=== PATIENT | male | born 1975 | race African-American/Black ===

== ENCOUNTER 2016-06-22 14:39 | Emergency (ER) | payer OTHER ==
[2016-06-22 14:46] VITALS: BP 127/74; PULSE 86; TEMP 97.6; BMI 30.2
[2016-06-22] MEDS ORDERED: ALBUTEROL SO4 2.5/IPRATROPIUM 0.5 INH SOL 3 ML VIAL.NEB. NEB ONE ×4 (15:20→16:43)
[2016-06-22] MEDS ORDERED: predniSONE 20 MG TABLET (UD) PO ONE (15:21)
[2016-06-22] MEDS ORDERED: predniSONE 20 MG TABLET (UD) ONE (15:21)
--- NOTE | 2016-06-22 15:25 | PDOC ---
History of Present Illness - General Chief Complaint: Cold Symptoms Stated Complaint: FLU SYMP Time Seen by Provider: 06/22/16 14:58 History Source: Patient Exam Limitations: No Limitations - History of Present Illness Initial Comments: 06/22/16 15:28 c/o cough , wheezing and SOB Timing/Duration: reports: constant, getting worse Severity: reports: mild, moderate Associated Symptoms: reports: chest pain/soreness, fever/chills, nasal congestion, nasal drainage, shortness of breath, wheezing Past History - Travel Traveled outside of the country in the last 30 days: No Close contact w/someone who was outside of country & ill: No - Past Medical History Allergies/Adverse Reactions: Allergies Allergy/AdvReac Type Severity Reaction Status Date / Time chloriquine Allergy Uncoded 06/22/16 14:42 Home Medications: Ambulatory Orders Prednisone [Deltasone -] 20 mg PO BID #8 tablet 06/22/16 Other medical history: NONE - Psycho/Social/Smoking Cessation Hx Anxiety: No Suicidal Ideation: No Smoking History: Never smoked Have you smoked in the past 12 months: No Information on smoking cessation initiated: No Hx Alcohol Use: No Drug/Substance Use Hx: No Substance Use Type: None Review of Systems - Review of Systems Able to Perform ROS?: Yes Is the patient limited Kinyarwanda proficient: Yes Constitutional: Yes: Symptoms Reported, See HPI, Malaise. No: Fever HEENTM: Yes: Symptoms Reported, See HPI, Nose Congestion, Throat Pain Respiratory: Yes: Symptoms reported, See HPI, Cough, Shortness of Breath, Wheezing : No: Symptoms Reported Musculoskeletal: Yes: Symptoms Reported, See HPI All Other Systems: Reviewed and Negative *Physical Exam - Vital Signs Last Vital Signs Temp Pulse Resp BP Pulse Ox 97.6 F 86 22 127/74 96 06/22/16 14:43 06/22/16 14:43 06/22/16 14:43 06/22/16 14:43 06/22/16 14:43 - Physical Exam General Appearance: Yes: Nourished, Appropriately Dressed. No: Apparent Distress HEENT: positive: EOMI, YANA, TMs Normal, Pharynx Normal, Rhinorrhea Neck: positive: Supple, Lymphadenopathy (R), Lymphadenopathy (L). negative: Tender Respiratory/Chest: positive: Labored Respiration, Decreased Breath Sounds (poor breath sounds bilaterally with end expiratory wheeze), Wheezing. negative: Normal Breath Sounds, Respiratory Distress, Accessory Muscle Use, Rhonchi Cardiovascular: positive: Regular Rate Gastrointestinal/Abdominal: positive: Soft. 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 Will treat with prednisone and DuoNeb's and reevaluate Medical Decision Making - Medical Decision Making 06/22/16 17:40 Patient much improved after third treatment, redness around 60 mg and one hour. Is able to walk without dyspnea, breath sounds are much clear with good aeration bilaterally. No wheezing heard. Will discharge with prednisone, and instructions for antihistamine use. Will follow-up with PMD *DC/Admit/Observation/Transfer Diagnosis at time of Disposition: Allergic rhinitis Qualifiers: Allergic rhinitis trigger: unspecified Allergic rhinitis seasonality: unspecified seasonality Qualified Code(s): J30.9 - Allergic rhinitis, unspecified - Discharge Dispostion Disposition: HOME Condition at time of disposition: Stable Admit: No - Referrals Referrals: Eric Tinajero MD [Primary Care Provider] - - Patient Instructions Printed Discharge Instructions: DI for Allergic Rhinitis Additional Instructions: Rest, drink lots of fluids: Teas, water, soups, Pedialyte Saltwater gargles Steamy showers/seem to face break up mucus Avoid contact with others until fevers and cough resolved Lots of handwashing and good hygiene Continue [id number] medications for symptomatic relief Tylenol or Motrin for fever and pain Antihistamines daily until ALLERGY season is gone- Zyrtec/ Alka/ Claritin= May buy generic meds as they are thje same Prednisone 40 mg daily for next 4 days Followup with private physician in one to 2 days as needed Return to emergency department for worsened symptoms, fevers, dehydration
== END 2016-06-22 17:52 | disposition home or self-care (01) ==
LOC: JERFT 14:39
PROC: 3E0F7GC Introduction of Other Therapeutic Substance into Respiratory Tract, Via Natural or Artificial Opening (ICD-10-PCS; principal; 2016-06-22)
PROC: 3E0F7GC Introduction of Other Therapeutic Substance into Respiratory Tract, Via Natural or Artificial Opening (ICD-10-PCS; 2016-06-22)
DX: J45.901 Unspecified asthma with (acute) exacerbation (principal); J30.9 Allergic rhinitis, unspecified
CPT/HCPCS: 94640; 99281-25

== ENCOUNTER 2018-02-27 11:35 | Emergency (ER) | payer OTHER ==
[2018-02-27 11:41] VITALS: BP 153/80; PULSE 75; TEMP 97.8; BMI 30.4
[2018-02-27] MEDS ORDERED: KETOROLAC TROMETHAMINE 30 MG/1 ML VIAL IM ONE (12:13)
[2018-02-27] MEDS ORDERED: KETOROLAC TROMETHAMINE 30 MG/1 ML VIAL ONE (12:15)
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
== END 2018-02-27 12:21 | disposition home or self-care (01) ==
LOC: JERFT 11:35
PROC: 3E0233Z Introduction of Anti-inflammatory into Muscle, Percutaneous Approach (ICD-10-PCS; principal; 2018-02-27)
DX: M54.89 Other dorsalgia (principal); V49.49XA Driver injured in collision with other motor vehicles in traffic accident, initial encounter; Y92.488 Other paved roadways as the place of occurrence of the external cause; Y93.89 Activity, other specified; Y99.8 Other external cause status
CPT/HCPCS: 99281-25

== ENCOUNTER 2018-04-08 10:55 | Emergency (ER) | payer OTHER ==
[2018-04-08 11:21] VITALS: BP 109/53; PULSE 88; TEMP 98.9; BMI 30.2
--- NOTE | 2018-04-08 12:07 | PDOC ---
History of Present Illness - General Chief Complaint: Cold Symptoms Stated Complaint: COLD SYMPTOMS Time Seen by Provider: 04/08/18 11:48 History Source: Patient Exam Limitations: No Limitations - History of Present Illness Initial Comments: 04/08/18 12:02 42 year old male with no significant medical or surgical history present with his family all complaining of flu-like symptoms, coughing, stuffy nose, malaise and bodyaches. States symptoms x 2 days. Denies shortness of breath 04/09/18 13:49 Timing/Duration: reports: yesterday Severity: reports: mild Possible Cause: Yes: other (sick contacts) Associated Symptoms: denies: cough, dizziness Aspirin Received prior to arrival: Yes: no aspirin today ASA Contraindications(Core Measure): No: Allergy Beta Angelica Contraindications(Core Measure): Yes: Not Prescribed Beta Angelica Given by EMS(Core Measure): No Past History - Travel Traveled outside of the country in the last 30 days: No Close contact w/someone who was outside of country & ill: No - Past Medical History Allergies/Adverse Reactions: Allergies Allergy/AdvReac Type Severity Reaction Status Date / Time chloriquine Allergy Uncoded 04/08/18 11:18 Home Medications: Ambulatory Orders Methocarbamol [Robaxin -] 1,500 mg PO Q8H #30 tablet 02/27/18 Oseltamivir Phosphate [Tamiflu -] 75 mg PO DAILY #10 capsule 04/08/18 COPD: No - Immunization History Immunization Up to Date: Yes - Suicide/Smoking/Psychosocial Hx Smoking History: Never smoked Have you smoked in the past 12 months: No Information on smoking cessation initiated: No Hx Alcohol Use: No Drug/Substance Use Hx: No Substance Use Type: None Respiratory Specific PMHX - Complaint Specific PMHX Angina: No Bronchitis: No Pneumonia: No Pulmonary Embolus: No TB (Tuberculosis): No Review of Systems - Review of Systems Able to Perform ROS?: Yes Is the patient limited Bhutanese proficient: No Constitutional: Yes: Fever, Malaise. No: Chills HEENTM: Yes: Nose Congestion Respiratory: Yes: Cough. No: Orthopnea, Shortness of Breath, Stridor Cardiac (ROS): No: Chest Pain, Lightheadedness, Palpitations ABD/GI: No: Nausea, Poor Appetite, Vomiting, Indigestion Musculoskeletal: No: Back Pain, Joint Pain, Muscle Pain, Muscle Weakness Integumentary: No: Bruising, Erythema Neurological: No: Headache, Numbness, Paresthesia, Weakness Hematologic/Lymphatic: No: Anemia *Physical Exam - Vital Signs Last Vital Signs Temp Pulse Resp BP Pulse Ox 98.9 F 88 17 109/53 L 98 04/08/18 11:19 04/08/18 11:19 04/08/18 11:19 04/08/18 11:19 04/08/18 11:19 - Physical Exam General Appearance: Yes: Nourished, Appropriately Dressed. No: Apparent Distress HEENT: positive: TMs Normal, Pharynx Normal, Pharyngeal Erythema, Nasal Congestion, Rhinorrhea Neck: positive: Supple. 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, Fully Oriented Moderate Sedation - Procedure Monitoring Vital Signs: Procedure Monitoring Vital Signs Temperature 98.9 F 04/08/18 11:19 Pulse Rate 88 04/08/18 11:19 Respiratory Rate 17 04/08/18 11:19 Blood Pressure 109/53 L 04/08/18 11:19 O2 Sat by Pulse Oximetry (%) 98 04/08/18 11:19 Medical Decision Making - Medical Decision Making 04/08/18 12:06 42 year old male with no significant medical or surgical history presents with his family with flu-like symptoms influenza swab 04/08/18 12:31 +influenza A rx: tamiflu *DC/Admit/Observation/Transfer Diagnosis at time of Disposition: Influenza A - Discharge Dispostion Disposition: HOME Condition at time of disposition: Good Decision to Admit order: No - Prescriptions Prescriptions: Oseltamivir Phosphate [Tamiflu -] 75 mg PO DAILY #10 capsule - Referrals Referrals: Eric Tinajero MD [Primary Care Provider] - - Patient Instructions Printed Discharge Instructions: How to Avoid a Cold or Flu Additional Instructions: Please drink plenty fluids May take ibuprofen for fever or pain Call primary physician for follow up appointment - Post Discharge Activity Forms/Work/School Notes: Back to Work
== END 2018-04-08 13:37 | disposition home or self-care (01) ==
LOC: JERFT 10:55
DX: J09.X2 Influenza due to identified novel influenza A virus with other respiratory manifestations (principal)
CPT/HCPCS: 87804; 99281-25

== ENCOUNTER 2019-10-27 18:21 | Emergency (ER) | payer OTHER ==
[2019-10-27 18:27] VITALS: BMI 32.5
[2019-10-27] MEDS ORDERED: KETOROLAC TROMETHAMINE 30 MG/1 ML VIAL IM ONE (20:14)
--- NOTE | 2019-10-27 20:26 | PDOC ---
History of Present Illness - General Chief Complaint: Pain, Acute Stated Complaint: LOWER RS BACK PAIN- UNSPECIFIED Time Seen by Provider: 10/27/19 19:35 History Source: Patient Exam Limitations: No Limitations - History of Present Illness Initial Comments: 10/27/19 20:19 HISTORY OF PRESENT ILLNESS: 44-year-old male denies medical history presents emergency department for evaluation of right mid back pain for the past 2 weeks. Patient was seen and evaluated by his primary doctor who gave the patient a prescription for Naprosyn which he reports his head minimal relief of his symptoms. Patient reports the pain is waxing and waning is unable to identify any aggravating or alleviating factors. Patient reports his pain feels like a "sharp itch." He denies any dysuria, hematuria, rectal bleeding, penile discharge, abdominal pain, nausea or vomiting. No recent travel or sick contacts. PAST MEDICAL HISTORY: Denies past medical history SURGICAL HISTORY: Denies ALLERGIES: Chloroquine REVIEW OF SYSTEMS General/Constitutional: Denies fever or chills. Denies weakness, weight change. HEENT: Denies change in vision. Denies ear pain or discharge. Denies sore throat. Cardiovascular: Denies chest pain or shortness of breath. Respiratory: Denies cough, wheezing, or hemoptysis. Gastrointestinal: Denies nausea, vomiting, diarrhea or constipation. Denies rectal bleeding. Genitourinary: Denies dysuria, frequency, or change in urination. Musculoskeletal: See HPI Skin and breasts: Denies rash or easy bruising. Neurologic: Denies headache, vertigo, loss of consciousness, or loss of sensation. Psychiatric: Denies depression or anxiety. Endocrine: Denies increased thirst. Denies abnormal weight change. Hematologic/Lymphatic: Denies anemia, easy bleeding, or history of blood clots. Allergic/Immunologic: Denies hives or skin allergy. Denies latex allergy. PHYSICAL EXAM General Appearance: Well-appearing, appropriately dressed. No apparent distress, no intoxication. Respiratory/Chest: Lungs CTAB. No shortness of breath, chest tenderness, respiratory distress, accessory muscle use. No crackles, rales, rhonchi, stridor, wheezing, dullness Cardiovascular: RRR. S1, S2. No JVD, murmur, bradycardia, tachycardia. Gastrointestinal/Abdominal: Normal bowel sounds. Abdomen soft, non-distended. No tenderness or rebound tenderness. No organomegaly, pulsatile mass, guarding, hernia, hepatomegaly, splenomegaly. Musculoskeletal/Extremities: Normal inspection. FROM of all extremities, normal capillary refill. Pelvis Stable. No CVA tenderness. No tenderness to ext remities, pedal edema, swelling, erythema or deformity. Past History - Medical History Allergies/Adverse Reactions: Allergies Allergy/AdvReac Type Severity Reaction Status Date / Time chloroquine Allergy Verified 10/27/19 20:37 Home Medications: Ambulatory Orders Methocarbamol [Robaxin -] 1,500 mg PO Q8H #30 tablet 02/27/18 Oseltamivir Phosphate [Tamiflu -] 75 mg PO DAILY #10 capsule 04/08/18 COPD: No - Immunization History Immunization Up to Date: Yes - Psycho-Social/Smoking History Smoking History: Never smoked Have you smoked in the past 12 months: No *Physical Exam - Vital Signs Last Vital Signs Temp Pulse Resp BP Pulse Ox 65 18 145/80 100 10/27/19 18:23 10/27/19 18:23 10/27/19 18:23 10/27/19 18:23 ED Treatment Course - RADIOLOGY Radiology Studies Ordered: Category Date Time Status RIBS RIGHT SIDE [RAD] Stat Radiology 10/27/19 18:50 Taken Medical Decision Making - Medical Decision Making 10/27/19 20:26 A/P: 44-year-old male with right mid back pain for 2 weeks Lungs clear to auscultation bilaterally No deformity, crepitus, subcutaneous emphysema, flail chest present upon palpation No CVA tenderness elicited Pain is likely musculoskeletal but as patient has been receiving treatment for musculoskeletal pain over the past 2 weeks I will get a right rib series as well as urine studies Rib x-rays read by me: No acute pathology present. Toradol 30 mg IM now Reassess 10/27/19 21:28 Laboratory Tests 10/27/19 20:55 Urine Color Yellow Urine Appearance Clear Urine pH 5.5 Ur Specific [place] 1.027 Urine Protein Negative Urine Glucose (UA) Negative Urine Ketones Negative Urine Blood Negative Urine Nitrite Negative Urine Bilirubin Negative Urine Urobilinogen 1.0 Ur Leukocyte Esterase Negative Given negative rib films and UA not suggestive of infection likely is musculoskeletal in nature. Patient instructed to continue Naprosyn and to add Tylenol for pain relief. Patient instructed to use OTC Lidoderm patches. I discussed the physical exam findings, ancillary test results and final diagnoses with the patient. I answered all of the patient's questions. The patient was satisfied with the care received and felt comfortable with the discharge plan and treatment plan. The patient will call their primary care physician within 24 hours to arrange follow-up and will return to the Emergency Department with any new, persistent or worsening symptoms. Portions of this note have been documented using voice recognition software. As a result, errors may occur in the display card writer process. Effort has been made to correct all grammatical and display card writer error, but some may have been missed which may produce sporadic inaccurate display card writer or nonsensical phrases. Discharge - Discharge Information Problems reviewed: Yes Clinical Impression/Diagnosis: Musculoskeletal back pain Condition: Stable Disposition: HOME - Admission No - Follow up/Referral Referrals: Eric Tinajero MD [Primary Care Provider] - - Patient Discharge Instructions Additional Instructions: Take Tylenol and naproxen as needed for pain. Follow manufacturers instructions for appropriate dosage. Apply [id number] lidocaine patches to affected areas to help with pain relief. Try not to walk or bear weight as much as possible for the next 3 days. Warm moist heat applied to your back may help alleviate pain. Return to emergency department for discoloration of the foot, numbness or tingling to the foot, worsening pain, or any other concerns. Thank you very much for choosing us to provide your emergent healthcare needs. - Post Discharge Activity
[2019-10-27 21:27] LABS: PH,URINE 5.5 (5.0-8.0); URINE APPEARANCE CLEAR; URINE BILIRUBIN NEGATIVE (NEGATIVE); URINE COLOR YELLOW; URINE GLUCOSE (UA) NEGATIVE (NEGATIVE); URINE KETONE NEGATIVE (NEGATIVE); URINE LEUK ESTERASE NEGATIVE (NEGATIVE); URINE NITRITE NEGATIVE (NEGATIVE); URINE PROTEIN NEGATIVE (NEGATIVE)
[2019-10-27 21:53] VITALS: BP 127/80; PULSE 56
== END 2019-10-27 21:55 | disposition home or self-care (01) ==
LOC: JER 18:21
PROC: 3E0233Z Introduction of Anti-inflammatory into Muscle, Percutaneous Approach (ICD-10-PCS; principal; 2019-10-27)
DX: M79.10 Myalgia, unspecified site (principal)
CPT/HCPCS: 71101-TC-RT-FY; 81003; 87086; 99284-25

== ENCOUNTER 2020-05-03 18:41 | Emergency (ER) | payer OTHER ==
[2020-05-03 18:59] VITALS: BP 141/72; PULSE 90; TEMP 98.1; BMI 30.8
[2020-05-03] MEDS ORDERED: DEXAMETHASONE LIQUID 0.5 MG/5 ML PO ONE (19:07)
[2020-05-03] MEDS ORDERED: ALBUTEROL SO4 2.5/IPRATROPIUM 0.5 INH SOL 3 ML VIAL.NEB. NEB ONE ×2 (19:07→19:24)
[2020-05-03] MEDS ORDERED: DEXAMETHASONE SOD PHOSPHATE 10 MG/1 ML VIAL ONE ×2 (19:24→19:29)
== END 2020-05-03 20:13 | disposition home or self-care (01) ==
LOC: JER 18:41
PROC: 3E0F7GC Introduction of Other Therapeutic Substance into Respiratory Tract, Via Natural or Artificial Opening (ICD-10-PCS; principal; 2020-05-03)
DX: J98.01 Acute bronchospasm (principal)
CPT/HCPCS: 71046-TC-FY; 99283-25

== ENCOUNTER 2024-06-24 09:04 | Emergency (ER) | payer OTHER ==
[2024-06-24 09:10] VITALS: BP 127/83; PULSE 69; RESP 22; TEMP 97.6; BMI 31.0
[2024-06-24] MEDS: ALBUTEROL SO4 2.5/IPRATROPIUM 0.5 INH SOL 3 ML VIAL.NEB. NEB SCH (09:43)
[2024-06-24] MEDS ORDERED: DEXAMETHASONE SOD PHOSPHATE 10 MG/1 ML VIAL ONE (10:31)
[2024-06-24] MEDS ORDERED: ALBUTEROL SO4 2.5/IPRATROPIUM 0.5 INH SOL 3 ML VIAL.NEB. NEB ONE (10:31)
[2024-06-24] MEDS: DEXAMETHASONE SOD PHOSPHATE 10 MG/1 ML VIAL IVPUSH ONE (10:47)
[2024-06-24 10:55] LABS: ABSOLUTE IMMATURE GRANULOCYTES 0.01 x10^3/uL (0.0-0.031); BASOPHILS # 0.04 x10^3/uL (0.01-0.08); EOSINOPHIL % 12.4 % (0.8-7.0); EOSINOPHILS # 0.76 x10^3/uL (0.04-0.54); HEMATOCRIT 41.4 % (40.1-51.0); HEMOGLOBIN 13.6 g/dL (13.7-17.5); MCHC 32.9 g/dl (32.3-36.5); MEAN CELL VOLUME 89.4 fl (79.0-92.2); MEAN PLT VOLUME 10.1 fl (9.4-12.4); MONOCYTE # 0.49 x10^3/uL (0.30-0.82); PLATELET COUNT 239 x10^3/uL (163-337); RDW 12.1 % (12.1-15.9); VENOUS O2 SATURATION 49.2 % (70-80); VENOUS PCO2 43.1 mmHg (38-52); VENOUS PH 7.37 (7.310-7.410)
[2024-06-24 11:03] LABS: INR 1.03 (0.83-1.09); PROTHROMBIN TIME (PATIENT) 11.3 SEC (9.7-13.0)
[2024-06-24 11:06] LABS: ACTIVATED PTT 30.3 SECONDS (25.2-36.5)
[2024-06-24 11:27] LABS: POTASSIUM 3.8 mmol/L (3.5-5.1)
[2024-06-24 11:29] LABS: ALBUMIN 3.8 g/dl (3.4-5.0); BLOOD UREA NITROGEN 9.6 mg/dL (7-18); CALCIUM 9.7 mg/dL (8.5-10.1)
[2024-06-24 11:33] LABS: CREATININE 1.2 mg/dL (0.55-1.3)
[2024-06-24 11:34] LABS: BILIRUBIN,TOTAL 0.6 mg/dL (0.2-1); TOT PROT 7.3 g/dl (6.4-8.2)
[2024-06-24 11:38] LABS: N-TERMINAL BNP 49.6 pg/ml (5-125)
[2024-06-24] MEDS ORDERED: ALBUTEROL SO4 HFA INHALER IH ONE (13:21)
[2024-06-24] MEDS: ALBUTEROL SO4 HFA INHALER IH ONE (13:21)
== END 2024-06-24 14:00 | disposition home or self-care (01) ==
LOC: JER 09:04
PROC: 3E033GC Introduction of Other Therapeutic Substance into Peripheral Vein, Percutaneous Approach (ICD-10-PCS; principal; 2024-06-24)
PROC: 3E0F7GC Introduction of Other Therapeutic Substance into Respiratory Tract, Via Natural or Artificial Opening (ICD-10-PCS; 2024-06-24)
DX: J45.901 Unspecified asthma with (acute) exacerbation (principal); R05.9 Cough, unspecified; R06.02 Shortness of breath; R51.9 Headache, unspecified; R09.81 Nasal congestion; H57.89 Other specified disorders of eye and adnexa
CPT/HCPCS: 0241U-QW; 36415; 71045-TC-FY; 80053; 82803; 83735; 83880; 84484; 85025; 85610; 85730; 93005; 93010; 99285-25; J1100

== ENCOUNTER 2024-07-03 01:40 | Emergency (ER) | payer OTHER ==
[2024-07-03 01:50] VITALS: BP 123/85; PULSE 61; RESP 20; TEMP 98.6; BMI 30.7
[2024-07-03] MEDS ORDERED: POTASSIUM CHLORIDE TABS 20 MEQ TABLET.ER (FP) PO ONE ×2 (02:17→02:32)
[2024-07-03] MEDS ORDERED: CYANOCOBALAMIN (VITAMIN B-12) 1000 MCG/1 ML VIAL IM ONE (02:17)
[2024-07-03] MEDS ORDERED: FOLIC ACID 5 MG/1 ML SQ ONE (02:17)
[2024-07-03] MEDS ORDERED: CYANOCOBALAMIN (VITAMIN B-12) 1000 MCG/1 ML VIAL ONE (02:32)
[2024-07-03] MEDS ORDERED: PIPERACILLIN/TAZOB 4.5 GM 4.5 GM/100 ML BAG IVPB ONE (02:36)
[2024-07-03] MEDS ORDERED: MAGNESIUM CL 64 MG TABLET.SA PO ONE (03:23)
[2024-07-03] MEDS ORDERED: MAGNESIUM CL 64 MG TABLET.SA PO SCH (10:00)
== END 2024-07-03 03:44 | disposition home or self-care (01) ==
LOC: JER 01:40
DX: G62.9 Polyneuropathy, unspecified (principal)
CPT/HCPCS: 99283-25